=== PATIENT | female | born 1985 | race American Indian/Alaskan Native ===

== ENCOUNTER 2016-09-05 20:49 | Emergency (ER) | payer OTHER ==
[2016-09-05 20:50] VITALS: BMI 38.0
[2016-09-05] MEDS ORDERED: Oxycodone/Acetaminophen 5/325 mg Tab PO STA ×2 (21:45→22:31)
--- NOTE | 2016-09-05 22:14 | C.PDOC ---
History Of Present Illness A 30 y/o F with a Hx of Hidradenitis, c/o painful abscess to the right armpit for the past few days. Pt notes it as a recurring abscess and took medications with no relief. Denies fever, chills, drainage, rash, or any other complaints. Time Seen by Provider: 09/05/16 21:23 Chief Complaint (Nursing): Abnormal Skin Integrity History Per: Patient History/Exam Limitations: no limitations Onset/Duration Of Symptoms: Days Current Symptoms Are (Timing): Still Present Severity: Mild Recent travel outside of the [place]: No Additional History Per: Patient Past Medical History Reviewed: Historical Data, Nursing Documentation, Vital Signs Vital Signs: Last Vital Signs Temp 98.2 F 09/05/16 23:06 Pulse 94 H 09/05/16 23:06 Resp 20 09/05/16 23:06 BP 136/91 H 09/05/16 23:06 Pulse Ox 99 09/05/16 23:06 - Medical History PMH: Anxiety, Depression Denies: Diabetes, Hepatitis, HIV, HTN, Seizures, Sexually Transmitted Disease Surgical History: Cholecystectomy - [facility] Procedures SUPPOR VERBAL PSYCHOTHER (01/18/14) Family History: States: Unknown Family Hx - Social History Hx Tobacco Use: No Hx Alcohol Use: No Hx Substance Use: No - Immunization History Hx Tetanus Toxoid Vaccination: Yes Hx Influenza Vaccination: Yes Hx Pneumococcal Vaccination: Yes Review Of Systems Constitutional: Negative for: Fever, Chills Skin: Positive for: Other (Painful abscess to the right axilla, no drainage). Negative for: Rash Physical Exam - Physical Exam Appears: Non-toxic, No Acute Distress Skin: Warm, Dry, No Rash, Other (Tender, fluctuant, mass to the right axilla. No active drainage.) Head: Atraumatic, Normacephalic Eye(s): bilateral: Normal Inspection, PERRL Nose: Normal Neck: Normal Neurological/Psych: Oriented x3 (Alert), Normal Speech, Normal Cognition ED Course And Treatment O2 Sat by Pulse Oximetry: 98 (RA) Pulse Ox Interpretation: Normal Progress Note: Impression: A 30 y/o F c/o painful abscess to the right under arm for the past few days. Plans: I&D, oxycodone, reassess. I&D: Lidocaine with epi was used at the area. A 15 inch blade was used for the incision. Wound was drained, irrigated, and packed. Pt tolerated procedure well and is currently in no distress. Pt was advised to visit PMD within 1-2 days for wound check. - Incision & Drainage Of Abscess Anesthesia: Lidocaine 1%, With Epi Prep Used: Sterile Water, Betadine Procedure: Incised W/Scalpel Blade#: (15), Drained Pus, Irrigated Cavity W/ Saline, Probed To Break Up Loculations, Packed W/Gauze (and dressed. pt tolerated well) Disposition Counseled Patient/Family Regarding: Diagnosis, Need For Followup, Rx Given - Disposition Referrals: Demetrius Stokes MDE [Primary Care Provider] - Disposition: HOME/ ROUTINE Disposition Time: 22:32 Condition: STABLE Additional Instructions: Please follow up with PMD or Cryptanalyst on tuesday for wound check Take meds as prescribed Percocet only for severe pain Return to ER if worse Prescriptions: Clindamycin [Cleocin] 300 mg PO QID #28 cap oxyCODONE/Acetaminophen [Percocet 5/325 mg Tab] 1 tab PO QID PRN #7 tab PRN Reason: Pain Instructions: Abscess (ED) - Clinical Impression Clinical Impression: Abscess, Encounter for incision and drainage procedure - Scribe Statement The provider has reviewed the documentation as recorded by the Helenibxochitl soriano All medical record entries made by the Helenibxochitl were at my direction and personally dictated by me. I have reviewed the chart and agree that the record accurately reflects my personal performance of the history, physical exam, medical decision making, and the department course for this patient. I have also personally directed, reviewed, and agree with the discharge instructions and disposition.
[2016-09-05] MEDS ORDERED: Oxycodone/Acetaminophen 5/325 mg Tab ONE (22:20)
[2016-09-05 23:07] VITALS: BP 136/91; PULSE 94; RESP 20; TEMP 98.2
[2016-09-06 03:41] VITALS: O2SAT 98
== END 2016-09-05 23:07 | disposition home or self-care (01) ==
LOC: C.ER 20:49 → SUPCPDRO 20:49 → C.ER 23:07
DX: L02.411 Cutaneous abscess of right axilla (principal)

== ENCOUNTER 2017-03-31 15:32 | Emergency (ER) | payer OTHER ==
[2017-03-31 15:40] VITALS: BMI 41.0
--- NOTE | 2017-03-31 16:58 | C.PDOC ---
History Of Present Illness 31yo female with history of anxiety and depression, presents to ER for evaluation after she had a panic attack while at work. Patient has not been prescribed any medications for her symptoms but takes Benadryl to help sleep at night. She reports she has been increasingly anxious and depressed. At present, she denies any suicidal or homicidal ideation; she also denies any auditory or visual hallucinations. Patient denies any medical complaints. Time Seen by Provider: 03/31/17 16:35 Chief Complaint (Nursing): Psychiatric Evaluation History Per: Patient History/Exam Limitations: no limitations Onset/Duration Of Symptoms: Days Current Symptoms Are (Timing): Still Present Associated Symptoms: Anxiety, Depression, Suicidal Thoughts. denies: Suicidal Plan Past Medical History Reviewed: Historical Data, Nursing Documentation, Vital Signs Vital Signs: Last Vital Signs Temp 98.6 F 03/31/17 18:08 Pulse 84 03/31/17 18:08 Resp 16 03/31/17 18:08 BP 114/75 03/31/17 18:08 Pulse Ox 100 03/31/17 18:08 - Medical History PMH: Anxiety, Depression Denies: Diabetes, Hepatitis, HIV, HTN, Seizures, Sexually Transmitted Disease Surgical History: Cholecystectomy - [facility] Procedures SUPPOR VERBAL PSYCHOTHER (01/18/14) Family History: States: No Known Family Hx, Unknown Family Hx - Social History Hx Tobacco Use: No Hx Alcohol Use: No Hx Substance Use: No - Immunization History Hx Tetanus Toxoid Vaccination: Yes Hx Influenza Vaccination: Yes Hx Pneumococcal Vaccination: Yes Review Of Systems Psych: Positive for: Anxiety, Depression Physical Exam - Physical Exam Appears: Non-toxic (obese female), Other (tearful appearing) Skin: Normal Color Eye(s): bilateral: Normal Inspection Neck: Supple Chest: Symmetrical Cardiovascular: Rhythm Regular, No Murmur Respiratory: Normal Breath Sounds Gastrointestinal/Abdominal: Soft, No Tenderness Neurological/Psych: Oriented x3, Normal Speech, Normal Cognition ED Course And Treatment O2 Sat by Pulse Oximetry: 99 (RA) Pulse Ox Interpretation: Normal Medical Decision Making Medical Decision Making: Impression: Crisis evaluation Plan: -- Crisis evaluation Time: 1649 Patient seen and evaluated by crisis team; patient to be discharged home and will have outpatient psychiatric follow up that patient will set up tomorrow with Dr Ford. Disposition Counseled Patient/Family Regarding: Diagnosis, Need For Followup - Disposition Referrals: Leonela Ford MD [Staff Provider] - Disposition: HOME/ ROUTINE Disposition Time: 18:04 Condition: STABLE Additional Instructions: Please call Dr Ford tomorrow to make soonest appointment. Take Bernadryl if needed to help you sleep. Return to ER for any worse symptoms. Forms: General Discharge Instructions, [facility] ([place]), Work Excuse - Clinical Impression Clinical Impression: Depression, Anxiety - PA / [employer]ADER / Resident Statement MD/DO has reviewed & agrees with the documentation as recorded. - Scribe Statement The provider has reviewed the documentation as recorded by the Baljit Katz Provider Scribe Attestation: All medical record entries made by the Baljit were at my direction and personally dictated by me. I have reviewed the chart and agree that the record accurately reflects my personal performance of the history, physical exam, medical decision making, and the department course for this patient. I have also personally directed, reviewed, and agree with the discharge instructions and disposition.
[2017-03-31 18:09] VITALS: BP 114/75; PULSE 84; RESP 16; TEMP 98.6
[2017-04-04 21:15] VITALS: O2SAT 99
== END 2017-03-31 18:10 | disposition home or self-care (01) ==
LOC: C.ER 15:32
DX: F32.9 Major depressive disorder, single episode, unspecified (principal); F41.9 Anxiety disorder, unspecified